=== PATIENT | male | born 1965 | race Caucasian/White ===

== ENCOUNTER 2022-12-18 04:18 | Day surgery (SDC) | payer OTHER ==
[2022-12-17 12:01] VITALS: BMI 17.9
[2022-12-18 10:55] LABS: BASO % 1.2 % (0-2.0); EOS % 1.4 % (0-4.5); HEMOGLOBIN 10.6 GM/dL (11.7-16.9); LYMPH % 25.2 % (8-40); MCH 22.2 pg (25.7-33.7); MCHC 31.2 g/dl (32.0-35.9); MEAN CELL VOLUME 71.2 fl (80-96); MEAN PLT VOLUME 7.5 fl (7.5-11.1); MONO % 9.3 % (3.8-10.2); NEUT % 62.9 % (42.8-82.8); PLATELET COUNT 307 10^3/uL (134-434); RBC 4.78 M/mm3 (4.00-5.60); RDW 16.5 % (11.9-15.9); WHITE BLOOD COUNT 5.2 K/mm3 (4.0-10.0)
[2022-12-18 11:29] LABS: ALBUMIN 3.7 g/dl (3.4-5.0); BLOOD UREA NITROGEN 16.2 mg/dL (7-18)
[2022-12-18 11:32] LABS: CREATININE 0.8 mg/dL (0.55-1.3)
[2022-12-18 11:34] LABS: BILIRUBIN,TOTAL 0.5 mg/dL (0.2-1); TOT PROT 6.6 g/dl (6.4-8.2)
[2022-12-18 12:27] VITALS: BP 115/68; PULSE 64; RESP 23
[2022-12-18 14:49] VITALS: TEMP 98
== END 2022-12-18 10:55 | disposition home or self-care (01) ==
LOC: JASU-ENDO 04:18
PROVIDERS: ATTEND Internal Medicine Gastroenterology
PROC: 0DBK8ZX Excision of Ascending Colon, Via Natural or Artificial Opening Endoscopic, Diagnostic (ICD-10-PCS; 2022-12-18)
PROC: 0DBP8ZX Excision of Rectum, Via Natural or Artificial Opening Endoscopic, Diagnostic (ICD-10-PCS; 2022-12-18)
PROC: 3E0H8KZ Introduction of Other Diagnostic Substance into Lower GI, Via Natural or Artificial Opening Endoscopic (ICD-10-PCS; 2022-12-18)
PROC: 0DBK8ZX Excision of Ascending Colon, Via Natural or Artificial Opening Endoscopic, Diagnostic (ICD-10-PCS; principal; 2022-12-18 09:15)
DX: D12.2 Benign neoplasm of ascending colon (principal); D49.0 Neoplasm of unspecified behavior of digestive system; A63.0 Anogenital (venereal) warts; K64.8 Other hemorrhoids
CPT/HCPCS: 36415; 80053; 82378; 82728; 83540; 83550; 85025; 88305-TC; 88341-TC; 88342-TC

== ENCOUNTER 2023-01-26 04:23 | Day surgery (SDC) | payer OTHER ==
[2023-01-22 12:35] VITALS: BMI 17.9
[2023-01-26 08:51] VITALS: TEMP 97.8
[2023-01-26 09:27] VITALS: RESP 17
[2023-01-26 10:23] VITALS: BP 105/70; PULSE 66
== END 2023-01-26 09:25 | disposition home or self-care (01) ==
LOC: JASU-ENDO 04:23
PROVIDERS: ATTEND Internal Medicine Gastroenterology
PROC: 0DB78ZX Excision of Stomach, Pylorus, Via Natural or Artificial Opening Endoscopic, Diagnostic (ICD-10-PCS; 2023-01-26)
PROC: 0DB68ZX Excision of Stomach, Via Natural or Artificial Opening Endoscopic, Diagnostic (ICD-10-PCS; 2023-01-26)
PROC: 0DB98ZX Excision of Duodenum, Via Natural or Artificial Opening Endoscopic, Diagnostic (ICD-10-PCS; principal; 2023-01-26 08:00)
DX: D64.9 Anemia, unspecified (principal); K31.7 Polyp of stomach and duodenum; K29.50 Unspecified chronic gastritis without bleeding
CPT/HCPCS: 88305-TC; 88342-TC